=== PATIENT | female | born 1975 | race Caucasian/White ===

== ENCOUNTER 2023-10-10 16:46 | Inpatient (IN) | payer OTHER, SELFPAY ==
[2023-10-10 16:46] VITALS: BP 162/114; PULSE 115; RESP 17; TEMP 35.5; O2SAT 100; BMI 26.2
[2023-10-10 16:48] VITALS: BP 162/114; PULSE 115; RESP 17; TEMP 35.5; O2SAT 100
--- NOTE | 2023-10-10 16:53 | EDS_ITS ---
HPI History of Present Illness Chief Complaint: Cellulitis Informant: patient Onset/Context/Timing Onset: Weeks (1) Context: Gradual Onset Timing: Continuous Quality - All: sharp Location: Right elbow, proximal forearm, and distal upper arm Associated Symptoms Associated Symptoms ED: fever and headache Narrative Narrative: Patient presents with redness and swelling to her right elbow area that has been getting worse over the last week. Patient states she has had some drainage from the posterior aspect of her right elbow that has been intermittent. Patient describes her pain as sharp patient states nothing makes it better nothing makes it worse. Patient denies any paresthesias or weakness. Patient states she started taking doxycycline yesterday and has taken 3 doses of that. Patient admits to some subjective fevers. PFSH PFSH Medical History no medical history no medical history Allergy/AdvReac Type Severity Reaction Status Date / Time Penicillins Allergy Severe Angioedema Verified 10/10/23 16:48 Family History no significant family his Surgical History (Updated 10/10/23 @ 17:[address] Filiberto Moscoso DO) Hx of tubal ligation Social History Smoking Status: Former smoker ROS ROS ED Constitutional Constitutional ED: Reports fever(s) and subjective; Denies chills Eyes Eyes: Denies blurry vision or change in vision ENT ENT ED: Denies rhinorrhea or sore throat Cardiovascular Cardiovascular: Denies chest pain or palpitations Respiratory/Chest Respiratory/Chest: Denies cough or dyspnea Gastrointestinal Gastrointestinal: Denies nausea or vomiting Genitourinary Genitourinary ED: Denies dysuria or hematuria Musculoskeletal Musculoskeletal: Denies back pain or neck pain Integumentary Denies abscess or rash Neurologic Neurologic: Reports headache(s); Denies weakness Allergic/Immunologic Allergic/Immunologic ED: Denies mouth swelling or urticaria EXAM Physical Exam Const Vital Signs: 10/10/23 16:46 10/10/23 16:48 10/10/23 18:18 Temperature 96 F L 96 F L 96.9 F L Temperature Source Temporal Temporal Temporal Pulse Rate 115 H 115 H 94 Respiratory Rate 17 17 18 Blood Pressure 162/114 H 162/114 H 155/92 H Blood Pressure Mean 130 130 113 Pulse Ox 100 100 95 Oxygen Delivery Method Room Air Room Air Room Air Positive well nourished, well developed, alert and oriented x3 General Appearance ED: active, cooperative, well developed and NAD Orientation / Consciousness: awake HEENT Reports normocephalic and moist mucous membranes Neck full ROM and no JVD Extremity Extremity Narrative: There is tenderness, warmth, and erythema over the posterior aspect of the right elbow. There is some mild fluctuance over the olecranon bursa. There is no active discharge or drainage noted. Range of motion of the right elbow is somewhat limited in all motions secondary to pain. Strength is 5/5 in the radial, median, and ulnar areas. Sensation was intact to light touch in the radial, median, and ulnar areas. Radial pulses are equal bilaterally. Neuro oriented x3, CN's II-XII intact bilaterally, moves all extremities, no focal motor deficits and no sensory deficits noted Emeli Coma Scale: document GCS findings Spontaneous Obeys Commands Oriented 15 Sensorium / Orientation: awake and alert Motor Exam: strength 5/5 throughout Psych mental status grossly normal, cooperative and speech normal MDM MDM MDM Narrative Medical decision making narrative: Differential diagnosis includes cellulitis, olecranon bursitis, and sepsis. CBC will be obtained to assess for leukocytosis and anemia. Basic metabolic profile will be obtained to assess for electrolyte abnormality and renal function. Serum lactate will be obtained to assess for sepsis. Blood cultures will be obtained to assess for sepsis. Lab Data Attestation: I reviewed the patient's lab results. Lab results narrative: CBC was reviewed and was within normal limits. PT with INR and PTT were reviewed and were within normal limits. Basic metabolic profile was reviewed and was within normal limits. Serum lactate was reviewed and was normal at 1.1. Labs: Laboratory Results - last 24 hr 10/10/23 17:30 WBC 9.5 RBC 5.20 Hgb 14.8 Hct 45.5 MCV 87.5 MCH 28.5 MCHC 32.5 RDW Std Deviation 40.8 RDW Coeff of Leobardo 12.8 Plt Count 327 MPV 9.7 Immature Gran % (Auto) 0.800 Neut % (Auto) 79.2 H Lymph % (Auto) 10.0 L [place] % (Auto) 9.6 Eos % (Auto) 0.1 Baso % (Auto) 0.3 Absolute Neuts (auto) 7.5 Absolute Lymphs (auto) 0.95 Nucleated RBC % 0 PT 13.8 INR 1.1 APTT 27.3 Sodium 136 Potassium 3.7 Chloride 104 Carbon Dioxide 24.0 Anion Gap 8 BUN 14 Creatinine 0.84 Estim Creat Clear Calc 57.55 Est GFR (MDRD) Af Amer 92 Est GFR (MDRD) Non-Af 76 BUN/Creatinine Ratio 16.7 Glucose 114 H Lactic Acid 1.1 Calcium 9.4 Management Discussion w/another healthcare provider: Hospitalist (Dr. Forrest) and [employer] (Dr. Hernandez) Treatment and Re-Evaluation :: Patient was given IV fluids. Patient was given a dose of vancomycin and Levaquin. Patient was advised of her findings. Case was discussed with the hospitalist. She will admit the patient to her service. Patient understood and was agreeable with the plan. All questions were answered. Case was also discussed with Dr. Hernandez. He will evaluate the patient tomorrow in the hospital. He recommended obtaining x-rays. These were ordered. Patient and spouse understood and were agreeable with the plan. All questions were answered. Discharge Plan Triage Chief Complaint: Cellulitis ED Provider: Filiberto Moscoso Dx/Rx/DC Orders Clinical Impression: Cellulitis of left elbow, Olecranon bursitis of left elbow Primary Care Provider: Care Physician,No Primary Referrals: Rox Ross DO [Med Staff - [employer] Cutting Machine Operator] - Print Language: Greenlandic Disposition Disposition: Acute Care [facility]
[2023-10-10] MEDS: 0.9% Normal Saline (1000mL) 1,000 ML 1000 ML IV (17:36)
[2023-10-10 17:45] LABS: Absolute Lymphocyte Count 0.95 X10^3/uL (0.83-4.51); Absolute Neutrophil Count 7.5 X10^3/uL (2.0-7.7); Basophil# 0.03 X10^3/uL; Basophil% 0.3 % (0-1); Eosinophil# 0.01 X10^3/uL; Eosinophils% 0.1 % (0-5); Hematocrit 45.5 % (37-47); Hemoglobin 14.8 g/dL (12.0-15.0); Lymphocyte # 0.95 X10^3/ul (0.83-4.51); Mean Corp Hgb Conc 32.5 g/dL (32-36); Mean Corpuscular Hgb 28.5 pg (27.0-32.0); Mean Corpuscular Volume 87.5 fL (81-99); Mean Platelet Vol. 9.7 fl (6.2-12.0); Monocyte# 0.91 X10^3/uL; Monocyte% 9.6 % (0-10); NRBC Flagged by Analyzer 0 % (0-5); Neutrophil # 7.52 X10^3/uL (2.7-7.7); Neutrophil % 79.2 % (47-70); Platelet Count 327 K/mm3 (150-450); RBC Distribution Width CV 12.8 % (11.6-14.6); RBC Distribution Width SD 40.8 fl (35.1-43.9); White Blood Count 9.5 K/mm3 (4.4-11.0)
[2023-10-10 17:55] LABS: International Normalized Ratio 1.1; Partial Thromboplast Time 27.3 Seconds (24.1-36.2); Prothrombin Time (Protime)PT. 13.8 SECONDS (11.7-14.9)
[2023-10-10 17:59] LABS: Anion Gap 8 (5-15); BUN 14 mg/dL (7-18); BUN/Creat Ratio 16.7 RATIO (10-20); Calcium,Total 9.4 mg/dL (8.5-10.1); Chloride 104 mmol/L (98-107); Creatinine, Serum 0.84 mg/dL (0.55-1.02); EST Glomerular Filtration Rate 76 mL/min (>60); Est Glom Filt Rate - Afr Amer 92 mL/min (>60); Estimated Creatinine Clearance 57.55 ml/min; Glucose 114 mg/dL (74-106); Potassium 3.7 mmol/L (3.5-5.1); Sodium Level 136 mmol/L (136-145)
[2023-10-10 18:11] LABS: Lactic Acid 1.1 mmol/L (0.4-1.9)
[2023-10-10 18:18] VITALS: BP 155/92; PULSE 94; RESP 18; TEMP 36.1; O2SAT 95
--- NOTE | 2023-10-10 18:21 | HP.PCM_ITS ---
HPI - General General Date of Admission: 10/10/23 Date of Service: 10/10/23 Chief Complaint: redness of RUE HPI Narrative MELY NOLAND, is a 48 F with a PMh as outlined who was admitted via the ED on 10/10/2023 with a complaint of fever, headache and redness of her right elbow, proximal forearm and distal upperrarm. Her symptoms had been going on for at least a week and gradually worsening. She works at [employer] and saw a PA today who started her on p.o. doxycycline. She says she took the medication for 3 days but his symptoms worsened and the redness extended beyond the boundary outlined by the PA. 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 She denied any associated fever, chills, difficulty with moving the RUE or any other symptoms. REview of systems was otherwise negative. Vitals were BP of 155/92, [place] of 94, RR of 18a nd temp of 96.9F. She was saturating at 95% on room air. CBC showed hb of 14.8, wbc of 9.5 adn platelets of 327. CBC was unremarkable, and INR was 1.1. She was started on IV vancomycin and levofloxacin and is being admitted to be managed for cellulitis of hte RUE. [facility] Medical History no medical history Allergy/AdvReac Type Severity Reaction Status Date / Time Penicillins Allergy Severe Angioedema Verified 10/10/23 16:48 Family History no significant family his Surgical History (Updated 10/10/23 @ 17:[address] Filiberto Moscoso DO) Hx of tubal ligation Social History Smoking Status: Former smoker ROS Constitutional Constitutional: Denies anorexia, chills, fatigue, fever(s), malaise or weakness Eyes Eyes: Denies change in vision ENT HEENT: Denies dysphagia or sore throat Cardiovascular Cardiovascular: Denies chest pain, claudication, edema, palpitations or paroxysmal nocturnal dyspnea Respiratory/Chest Respiratory/Chest: Denies cough, shortness of breath at rest or shortness of breath with exertion Gastrointestinal Gastrointestinal: Denies abdominal pain, diarrhea, dyspepsia, nausea or vomiting Genitourinary Genitourinary: Denies dysuria Musculoskeletal Musculoskeletal: Reports joint pain and joint swelling; Denies back pain Integumentary Integumentary: Denies dry skin, jaundice, lesions, pruritus, rash or wounds Neurologic Neurologic: Denies confusion, dizziness, focal weakness, headache(s), lack of coordination, numbness or seizures Psychiatric Psychiatric: Denies anxiety or depression Vital Signs Vital Signs Vital Signs: 10/10/23 16:46 10/10/23 16:48 10/10/23 18:18 Temperature 96 F L 96 F L 96.9 F L Temperature Source Temporal Temporal Temporal Pulse Rate 115 H 115 H 94 Respiratory Rate 17 17 18 Blood Pressure 162/114 H 162/114 H 155/92 H Blood Pressure Mean 130 130 113 Pulse Ox 100 100 95 Oxygen Delivery Method Room Air Room Air Room Air Weight Weight: 117 lb 1.047 oz Body Mass Index (BMI) 26.2 Physical Exam Const alert, oriented x3 and no apparent distress General Appearance: cooperative and well developed HEENT normocephalic, head/scalp atraumatic, moist oral mucous membranes and oropharynx normal Eyes PERRL and EOMs intact bilaterally Neck no lymphadenopathy and supple Lymph Lymphatic: no lymphadenopathy noted and no lymphedema noted Resp normal respiratory effort, normal air movement and clear to auscultation bilaterally Cardio regular rate, regular rhythm, S1 normal heart sound, S2 normal heart sound and no murmurs GI normal to inspection, nondistended, normoactive bowel sounds, soft to palpation, non-tender and non-distended Extremity Extremity Narrative: RUE swollen at elbow, erythematous with differential warmth. fluctuant swelling over olecranon bursa, with differential warmth. Tender to touch. Erythema extends over elbow to upper forearm and lower arm. Area outlined with a body marker. Skin Skin Narrative: as under extremities Neuro CN's II-XII intact bilaterally, no focal motor deficits, no sensory deficits noted and deep tendon reflexes 2+ bilaterally Motor Exam: strength 5/5 throughout and general weakness Psych thought process normal and cooperative Appearance: appropriate Results Lab / Micro Data 10/10/23 17:30 10/10/23 17:30 Labs: Laboratory Results - last 24 hr 10/10/23 17:30: WBC 9.5, RBC 5.20, Hgb 14.8, Hct 45.5, MCV 87.5, MCH 28.5, MCHC 32.5, RDW Std Deviation 40.8, RDW Coeff of Leobardo 12.8, Plt Count 327, MPV 9.7, Immature Gran % (Auto) 0.800, Neut % (Auto) 79.2 H, Lymph % (Auto) 10.0 L, [place] % (Auto) 9.6, Eos % (Auto) 0.1, Baso % (Auto) 0.3, Absolute Neuts (auto) 7.5, Absolute Lymphs (auto) 0.95, Nucleated RBC % 0, PT 13.8, INR 1.1, APTT 27.3, Sodium 136, Potassium 3.7, Chloride 104, Carbon Dioxide 24.0, Anion Gap 8, BUN 14, Creatinine 0.84, Estim Creat Clear Calc 57.55, Est GFR (MDRD) Af Amer 92, Est GFR (MDRD) Non-Af 76, BUN/Creatinine Ratio 16.7, Glucose 114 H, Lactic Acid 1.1, Calcium 9.4 Assessment & Plan Assessment/Plan (1) Cellulitis: PLAN: Plan #Cellulitis of the RUE in charley setting of olecranon bursitis * Admit to MedSurg * WBC is not elevated. Will get an x-ray of the upper extremity to rule out any abscess formation. * Start on IV vancomycin Get blood cultures. * Consult orthopedic surgery as she says she works at [employer] and Dr. Hernandez said he was going to open up her elbow to wash it out. # Elevated blood pressure: BP is 155/92. Not known to be hypertensive. IV hydralazine prn. TO start BP meds if pain remains elevated. DVT prophylaxis: lovenox Charges/Coding Visit Charges Inpatient E&M: 86536 Init Hosp L3
[2023-10-10] MEDS: Vancomycin HCl 750 MG in 0.9% Normal Saline (250mL Bag) 250 ML 250 MG IV (18:46)
[2023-10-10 18:48] VITALS: BP 154/90; PULSE 90; RESP 19; TEMP 36.1; O2SAT 98
--- NOTE | 2023-10-10 18:56 | RAD_ITS ---
STUDY: X-RAY - RIGHT ELBOW REASON FOR EXAM: Female, 48 years old. Injury/Pain TECHNIQUE: 3 view(s) of the elbow. COMPARISON: None. FINDINGS: Normal visualized humerus, radius and ulna. Normal radiocapitellar and ulnotrochlear articulations. Post olecranon soft tissue swelling is noted. RAD/Elbow min 3 Views IMPRESSION: Post olecranon soft tissue swelling. No acute fracture or dislocation Electronically Signed: Kodi Jernigan MD at 19:28 EDT ,
[2023-10-10 19:00] VITALS: BP 158/95; PULSE 90; RESP 17; TEMP 36.2; O2SAT 97
[2023-10-10] MEDS: levoFLOXacin IV 750 MG/150 ML BAG 100 MG IV (19:34)
[2023-10-10 20:01] VITALS: BMI 26.8
[2023-10-10 20:20] VITALS: BP 160/94; PULSE 105; RESP 16; TEMP 36.1; O2SAT 100
[2023-10-10] MEDS: Vancomycin IV 500 MG/100 ML BAG 100 MG IV (21:30)
[2023-10-10] MEDS: 0.9% Normal Saline (1000mL) 1,000 ML 125 ML IV (21:30)
[2023-10-10] MEDS: Acetaminophen 325 MG Tablet 650 MG PO (21:39)
--- NOTE | 2023-10-10 22:27 | PCM.RX.CS ---
Consult Antibiotic Management Pharmacy has been consulted to manage selected antibiotic: Vancomycin Type of Intervention Type of Consult: New start Suspected Infection Suspected Infection: Skin/Soft tissue Labs Labs: Sodium 136 mmol/L (136-145) 10/10/23 17:30 Potassium 3.7 mmol/L (3.5-5.1) 10/10/23 17:30 Chloride 104 mmol/L (98-107) 10/10/23 17:30 Carbon Dioxide 24.0 mmol/L (21.0-32.0) 10/10/23 17:30 Anion Gap 8 (5-15) 10/10/23 17:30 BUN 14 mg/dL (7-18) 10/10/23 17:30 Creatinine 0.84 mg/dL (0.55-1.02) 10/10/23 17:30 Est GFR (MDRD) Af Amer 92 mL/min (>60) 10/10/23 17:30 Est GFR (MDRD) Non-Af 76 mL/min (>60) 10/10/23 17:30 BUN/Creatinine Ratio 16.7 RATIO (10-20) 10/10/23 17:30 Glucose 114 mg/dL (74-106) H 10/10/23 17:30 Dosing Weight Weight used for dosin.2 kg Estimated Creatinine Clearance Estimated Creatinine Clearance: 58 Goal Trough Goal Trough: 15-20 mcg/mL Pharmacy Plan for Drug Dosing Pharmacy Plan for Drug Dosing: Pharmacy Service will continue to monitor and adjust dosing as required. Follow-Up Labs Follow-Up Labs: Trough: Vancomycin Date/Time Labs Ordered Labs to be done on [date and time ordered]: 10/12/23 @0900
[2023-10-11] VITALS (12 sets, daily range): BP systolic 129–155; BP diastolic 75–114; PULSE 87–102; RESP 16–18; TEMP 36.6–37.4; O2SAT 93–100; BMI 26.8
[2023-10-11 04:06] LABS: Bacteria 0 SEEN /hpf (None Seen); Mucous, Urine 0 SEEN /hpf (<or=2+); White Blood Cells 0 SEEN /hpf (0-5)
[2023-10-11 04:11] LABS: Color, Urine Yellow (Yellow); Glucose, Dipstick Normal (Normal); Ketone-Dipstick 15 mg/dl (Negative); Leukocyte Esterase-Dipstick Negative /ul (Negative); Nitrite-Dipstick Negative (Negative); Occult Blood-Urine 250 /ul (Negative); Protein-Dipstick 30 mg/dl (Negative); Urine Bilirubin Dipstick Negative (Negative); Urine Clarity Clear (Clear); Urine Urobilinogen Normal (Normal); Urine pH 6.5 (5.0 - 8.0)
[2023-10-11 04:29] LABS: Red Blood Cells-Urine 10-25 SEEN /hpf (0-5); Squamous Epithelial Cells - UA 5-10 SEEN /hpf (5-10)
[2023-10-11] MEDS: 0.9% Normal Saline (1000mL) 1,000 ML 125 ML IV (05:37)
[2023-10-11 07:24] LABS: Absolute Lymphocyte Count 0.88 X10^3/uL (0.83-4.51); Absolute Neutrophil Count 6.9 X10^3/uL (2.0-7.7); Basophil# 0.04 X10^3/uL; Basophil% 0.4 % (0-1); Eosinophil# 0.01 X10^3/uL; Eosinophils% 0.1 % (0-5); Hematocrit 39.7 % (37-47); Hemoglobin 12.5 g/dL (12.0-15.0); Lymphocyte # 0.88 X10^3/ul (0.83-4.51); Lymphocyte % 9.9 % (19-41); Mean Corp Hgb Conc 31.5 g/dL (32-36); Mean Corpuscular Hgb 28.2 pg (27.0-32.0); Mean Corpuscular Volume 89.4 fL (81-99); Mean Platelet Vol. 9.7 fl (6.2-12.0); Monocyte# 1.03 X10^3/uL; Monocyte% 11.6 % (0-10); NRBC Flagged by Analyzer 0 % (0-5); Neutrophil # 6.88 X10^3/uL (2.7-7.7); Neutrophil % 77.2 % (47-70); Platelet Count 298 K/mm3 (150-450); RBC Distribution Width CV 12.8 % (11.6-14.6); RBC Distribution Width SD 41.9 fl (35.1-43.9); Red Blood Count 4.44 M/mm3 (4.2-5.4); White Blood Count 8.9 K/mm3 (4.4-11.0)
[2023-10-11 08:06] LABS: Anion Gap 7 (5-15); BUN 10 mg/dL (7-18); BUN/Creat Ratio 14.5 RATIO (10-20); Calcium,Total 8.2 mg/dL (8.5-10.1); Chloride 108 mmol/L (98-107); Creatinine, Serum 0.69 mg/dL (0.55-1.02); EST Glomerular Filtration Rate 96 mL/min (>60); Est Glom Filt Rate - Afr Amer 116 mL/min (>60); Estimated Creatinine Clearance 70.06 ml/min; Glucose 111 mg/dL (74-106); Potassium 3.5 mmol/L (3.5-5.1); Sodium Level 136 mmol/L (136-145)
--- NOTE | 2023-10-11 08:28 | WOUNDNOTE ---
Was asked to see patient for cellulitis of the right arm. patient states she has had issues with bursitis in the past. the redness to the arm had extended past the skin markings. there is some fluctuance noted at the elbow. arm is warm to touch. no drainage noted at this time. awaiting Spittle consult.
--- NOTE | 2023-10-11 08:44 | PCM.RX.CS ---
Consult Antibiotic Management Pharmacy has been consulted to manage selected antibiotic: Vancomycin Type of Intervention Type of Consult: Follow-up Suspected Infection Suspected Infection: Skin/Soft tissue Labs Labs: Sodium 136 mmol/L (136-145) 10/11/23 07:05 Potassium 3.5 mmol/L (3.5-5.1) 10/11/23 07:05 Chloride 108 mmol/L (98-107) H 10/11/23 07:05 Carbon Dioxide 21.0 mmol/L (21.0-32.0) 10/11/23 07:05 Anion Gap 7 (5-15) 10/11/23 07:05 BUN 10 mg/dL (7-18) 10/11/23 07:05 Creatinine 0.69 mg/dL (0.55-1.02) 10/11/23 07:05 Est GFR (MDRD) Af Amer 116 mL/min (>60) 10/11/23 07:05 Est GFR (MDRD) Non-Af 96 mL/min (>60) 10/11/23 07:05 BUN/Creatinine Ratio 14.5 RATIO (10-20) 10/11/23 07:05 Glucose 111 mg/dL (74-106) H 10/11/23 07:05 Goal Trough Goal Trough: 15-20 mcg/mL Pharmacy Plan for Drug Dosing Pharmacy Plan for Drug Dosing: DAILY ASSESSMENT Current Vancomycin Dose: 500mg Q12H Number of Doses Received: 1250mg x1 Current Renal Function: sCr 0.69 Renal Function Trend: improved Lab/Micro: pending Any Change in Vanc Plan: Adjust dosing regimen to 750mg Q12H Pending Level: Vancomycin trough @ 0900 10/12/23 Pharmacy Service will continue to monitor and adjust dosing as required. Follow-Up Labs Follow-Up Labs: Trough: Vancomycin (09:00 10/12/23)
[2023-10-11] MEDS: Vancomycin HCl 750 MG in 0.9% Normal Saline (250mL Bag) 250 ML 250 MG IV ×2 (09:31→21:04)
--- NOTE | 2023-10-11 10:26 | CONS.ORTHO ---
HPI Consult Data Date of Consult: 10/11/23 HPI Narrative Reason for Consultation: R septic olecranon bursitis/cellulitis HPI Narrative: MARCIA NOLAND, is a 48 F who presented to [facility] emergency department 10/10/2023 with fever, headache, malaise, redness and swelling of the right elbow with worsening cellulitic rash over the past 3 days. She was seen at [facility] and given oral doxycycline due to a penicillin allergy. Her symptoms worsened and cellulitic rash spread beyond skin markings. She was advised to go to the emergency department. She was evaluated by emergency room physician. She was started on IV vancomycin and Levaquin. She was admitted under the service to hospitalist due to failure of outpatient therapy of the cellulitis. I saw patient in consultation this morning. At time my examination, patient still reports some chills, fatigue as well as pain and swelling in the right elbow. [facility] Medical History (Updated 10/11/23 @ 10:[address] Franco Hernandez DO) Bleeding tendency Irritable bowel History of stress test Hearing loss, left Hearing loss, right Migraines Medical History no medical history Allergy/AdvReac Type Severity Reaction Status Date / Time Penicillins Allergy Severe Angioedema Verified 10/10/23 16:48 Family History no significant family his Surgical History (Updated 10/10/23 @ 17:[address] Filiberto Moscoso DO) Hx of tubal ligation Social History Smoking Status: Former smoker ROS ROS Narrative 12 point review systems obtained, negative unless otherwise noted HPI Vital Signs Vital Signs Vital Signs: 10/10/23 16:46 10/10/23 16:48 10/10/23 18:18 Temperature 96 F L 96 F L 96.9 F L Temperature Source Temporal Temporal Temporal Pulse Rate 115 H 115 H 94 Pulse Strength Respiratory Rate 17 17 18 Respiratory Effort Respiratory Depth Respiratory Pattern Blood Pressure 162/114 H 162/114 H 155/92 H Blood Pressure Mean 130 130 113 Blood Pressure Source Blood Pressure Position Blood Pressure Location Pulse Ox 100 100 95 Oxygen Delivery Method Room Air Room Air Room Air 10/10/23 18:48 10/10/23 19:00 10/10/23 20:20 Temperature 96.9 F L 97.1 F L 97 F L Temperature Source Temporal Temporal Pulse Rate 90 90 105 H Pulse Strength Respiratory Rate 19 H 17 16 Respiratory Effort Respiratory Depth Respiratory Pattern Blood Pressure 154/90 H 158/95 H 160/94 H Blood Pressure Mean 111 116 116 Blood Pressure Source Monitor Blood Pressure Position Sitting Blood Pressure Location Left Arm Pulse Ox 98 97 100 Oxygen Delivery Method Room Air Room Air 10/10/23 20:52 10/11/23 02:56 10/11/23 08:56 Temperature 99.3 F H 97.8 F Temperature Source Temporal Oral Pulse Rate 98 96 Pulse Strength Respiratory Rate 16 18 Respiratory Effort Normal Non-Labored Respiratory Depth Normal Respiratory Pattern Normal Blood Pressure 140/81 H 155/88 H Blood Pressure Mean 100 110 Blood Pressure Source Monitor Monitor Blood Pressure Position Semi-Fowlers Semi-Fowlers Blood Pressure Location Left Arm Left Arm Pulse Ox 100 100 Oxygen Delivery Method Room Air Room Air Room Air 10/11/23 09:00 10/11/23 09:29 Temperature Temperature Source Pulse Rate Pulse Strength Normal (2+) Respiratory Rate Respiratory Effort Normal Non-Labored Respiratory Depth Normal Respiratory Pattern Normal Blood Pressure Blood Pressure Mean Blood Pressure Source Blood Pressure Position Blood Pressure Location Pulse Ox Oxygen Delivery Method Room Air Weight Weight: 119 lb 9 oz Body Mass Index (BMI) 26.8 Physical Exam Narrative General -A&Ox3, NAD, appears stated age. Vital signs stable, afebrile. Respiratory -normal work of breathing, no intercostal retractions. CV -pulses regular, brisk capillary refill ?4 limbs. Abdomen-soft, nontender, nondistended. No guarding, rigidity, rebound tenderness. Musculoskeletal/neurologic -full range of motion nontender throughout bilateral lower extremities, left upper extremity with full sensation and strength in all dermatomes and myotomes. No midline cervical tenderness. Right upper extremity -cellulitic rash centered over the right olecranon with trace fluctuance in the olecranon bursa. There is mild induration noted in the distal posterior brachium. There is tenderness to palpation along the medial epicondyles felt to be lymphadenopathy. There is no axillary lymphadenopathy. Cardinal motions of right hand are intact. No short arc range of motion pain of the elbow. Brisk capillary refill in the fingertips. Radial pulse 2+. Sensation intact to light touch throughout the right upper extremity. No active drainage or wounds. Hypertrophic skin is noted at the olecranon consistent with chronic bursitis. Lab / Micro Data 10/11/23 07:05 10/11/23 07:05 Labs: Laboratory Results - last 24 hr 10/10/23 17:30: WBC 9.5, RBC 5.20, Hgb 14.8, Hct 45.5, MCV 87.5, MCH 28.5, MCHC 32.5, RDW Std Deviation 40.8, RDW Coeff of Leobardo 12.8, Plt Count 327, MPV 9.7, Immature Gran % (Auto) 0.800, Neut % (Auto) 79.2 H, Lymph % (Auto) 10.0 L, [place] % (Auto) 9.6, Eos % (Auto) 0.1, Baso % (Auto) 0.3, Absolute Neuts (auto) 7.5, Absolute Lymphs (auto) 0.95, Nucleated RBC % 0, PT 13.8, INR 1.1, APTT 27.3, Sodium 136, Potassium 3.7, Chloride 104, Carbon Dioxide 24.0, Anion Gap 8, BUN 14, Creatinine 0.84, Estim Creat Clear Calc 57.55, Est GFR (MDRD) Af Amer 92, Est GFR (MDRD) Non-Af 76, BUN/Creatinine Ratio 16.7, Glucose 114 H, Lactic Acid 1.1, Calcium 9.4 10/11/23 03:50: Urine Color Yellow, Urine Clarity Clear, Urine pH 6.5, Ur Specific [place] 1.010, Urine Protein 30 H, Urine Glucose (UA) Normal, Urine Ketones 15 H, Urine Occult Blood 250 H, Urine Nitrite Negative, Urine Bilirubin Negative, Urine Urobilinogen Normal, Ur Leukocyte Esterase Negative, Urine RBC 10-25 SEEN, Urine WBC 0 SEEN, Ur Squamous Epith Cells 5-10 SEEN, Urine Bacteria 0 SEEN, Urine Mucus 0 SEEN 10/11/23 07:05: WBC 8.9, RBC 4.44, Hgb 12.5, Hct 39.7, MCV 89.4, MCH 28.2, MCHC 31.5 L, RDW Std Deviation 41.9, RDW Coeff of Leobardo 12.8, Plt Count 298, MPV 9.7, Immature Gran % (Auto) 0.800, Neut % (Auto) 77.2 H, Lymph % (Auto) 9.9 L, [place] % (Auto) 11.6 H, Eos % (Auto) 0.1, Baso % (Auto) 0.4, Absolute Neuts (auto) 6.9, Absolute Lymphs (auto) 0.88, Nucleated RBC % 0, Sodium 136, Potassium 3.5, Chloride 108 H, Carbon Dioxide 21.0, Anion Gap 7, BUN 10, Creatinine 0.69, Estim Creat Clear Calc 70.06, Est GFR (MDRD) Af Amer 116, Est GFR (MDRD) Non-Af 96, BUN/Creatinine Ratio 14.5, Glucose 111 H, Calcium 8.2 L Imaging Radiology Impression Elbow X-Ray 10/10/23 18:56 IMPRESSION: Post olecranon soft tissue swelling. No acute fracture or dislocation Electronically Signed: Kodi Jernigan MD at 19:28 EDT Reading Location ID and State: [facility] / [place] Tel , Service support , Assessment & Plan Assessment/Plan (1) Septic olecranon bursitis of right elbow: PLAN: Plan Patient seen and examined. With lackluster early relief from IV antibiotics and failure of outpatient therapy as well as palpable fluctuance within the olecranon bursa, I recommended surgical intervention in the form of right olecranon bursectomy. We will plan to obtain cultures for more accurate antibiotic targeting. N.p.o., maintenance IV fluids. Plan to proceed with surgery today. I reviewed the risks, benefits, alternatives to procedure with Marcia at length and she agreed to proceed. We discussed possible drain and splint. All questions answered patient satisfaction. Continue antibiotics per primary. I suspect earliest discharge tomorrow.
--- NOTE | 2023-10-11 11:08 | EKG12_ITS ---
Test Reason : PRE OP Blood Pressure : / mmHG Vent. Rate : 098 BPM Atrial Rate : 098 BPM P-R Int : 136 ms QRS Dur : 074 ms QT Int : 344 ms P-R-T Axes : 044 040 024 degrees QTc Int : 439 ms Normal sinus rhythm Normal ECG No previous ECGs available Confirmed by Ceferino Moore ([id number]), subeditor RALPH VELAZQUEZ ([id number]) on 10/12/2023 10:31:41 AM Referred By: Zoey Forrest Confirmed By:Ceferino Moore
--- NOTE | 2023-10-11 13:07 | CASEMGMT ---
CARLOS MORELAND Assessment Face to Face with patient for initial transition planning/care coordination assessment. CARLOS MORELAND introduced self and role at [facility], pt voices understanding. Pt is A&Ox4 and is resting comfortably in bed and is calm. Care providers, pharmacy, and demographics verified. Admitting dx: Cellulitis of RUE PCP: No PCP, pt denies list Specialists: Mary. 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 Denies all other DME uses or needs HHC/SNF: Denies history or needs Pt?s goal: Home and f/u with [facility] Plan: 6-Click is 24. Pt is planned for surgery today and then will most likely D/C Sunday. 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 CM to follow for safe DC from [facility]. Jerry Mcmahon RN, CM
--- NOTE | 2023-10-11 13:19 | NURSING ---
Pt sent to OR
[2023-10-11] MEDS: Lactated Ringers 1,000 ML 15 ML IV (13:58)
--- NOTE | 2023-10-11 14:34 | PCM.PN.HOSP ---
Reason for Visit Reason for Visit: Right arm swelling and erythema Subjective Subjective Patient is a 48-year-old white female who presents emergency department at [facility] on 10/10/2023 with right elbow swelling and right upper extremity swelling and erythema. The patient reported that it started last week and had been progressively getting worse. She states intermittently she gets an area that drains and it occurred last week. Physician congressional assistant told her to put a bandage over it and then antibiotics had been started orally with doxycycline. Unfortunately, her swelling and erythema got worse and she is developed a significant boggy swelling at the right elbow bursa. She stated the pain was sharp and that nothing makes it better or worse. She denies any paresthesias changes in pulses or sensation in her hand. She denies any significant weakness in the arm either. She had a total of 3 doses of doxycycline prior to admission. She has had some fevers and chills at home. Also admits to some intermittent headache. She takes no medications at baseline and works in [place] [employer]. The case was discussed with Dr. Hernandez and he agreed to evaluate the patient's for probable I&D. She was started on vancomycin and Levaquin at admission. Blood cultures were ordered by the emergency department prior to the initiation of antibiotics. Today she states that swelling is about the same. The area was outlined and no extension of erythema has been noted to be present. She states she is feeling a little bit better and impresses upon us but she is anxious to get home soon as possible. Objective Data Objective Data Vital Signs: Vital Signs Temp Pulse Resp BP Pulse Ox O2 Del Method 98.7 F 98 18 146/91 H 100 Room Air 10/11/23 12:24 10/11/23 12:24 10/11/23 12:24 10/11/23 12:24 10/11/23 12:24 10/11/23 12:24 Oxygen Delivery Method Room Air Weight: 54.233 kg Body Mass Index (BMI) 26.8 Intake & Output: Intake and Output for Last 24 Hours 10/09/23 10/10/23 10/11/23 23:59 23:59 23:59 Intake Total 1445.83 / 1645.83 2140 / 2140 Output Total 200 / 200 Balance 1445.83 / 1645.83 1940 / 1940 Lab / Micro Data 10/11/23 07:05 10/11/23 07:05 Labs: Laboratory Results - last 24 hr 10/10/23 17:30: WBC 9.5, RBC 5.20, Hgb 14.8, Hct 45.5, MCV 87.5, MCH 28.5, MCHC 32.5, RDW Std Deviation 40.8, RDW Coeff of Leobardo 12.8, Plt Count 327, MPV 9.7, Immature Gran % (Auto) 0.800, Neut % (Auto) 79.2 H, Lymph % (Auto) 10.0 L, [place] % (Auto) 9.6, Eos % (Auto) 0.1, Baso % (Auto) 0.3, Absolute Neuts (auto) 7.5, Absolute Lymphs (auto) 0.95, Nucleated RBC % 0, PT 13.8, INR 1.1, APTT 27.3, Sodium 136, Potassium 3.7, Chloride 104, Carbon Dioxide 24.0, Anion Gap 8, BUN 14, Creatinine 0.84, Estim Creat Clear Calc 57.55, Est GFR (MDRD) Af Amer 92, Est GFR (MDRD) Non-Af 76, BUN/Creatinine Ratio 16.7, Glucose 114 H, Lactic Acid 1.1, Calcium 9.4 10/11/23 03:50: Urine Color Yellow, Urine Clarity Clear, Urine pH 6.5, Ur Specific [place] 1.010, Urine Protein 30 H, Urine Glucose (UA) Normal, Urine Ketones 15 H, Urine Occult Blood 250 H, Urine Nitrite Negative, Urine Bilirubin Negative, Urine Urobilinogen Normal, Ur Leukocyte Esterase Negative, Urine RBC 10-25 SEEN, Urine WBC 0 SEEN, Ur Squamous Epith Cells 5-10 SEEN, Urine Bacteria 0 SEEN, Urine Mucus 0 SEEN 10/11/23 07:05: WBC 8.9, RBC 4.44, Hgb 12.5, Hct 39.7, MCV 89.4, MCH 28.2, MCHC 31.5 L, RDW Std Deviation 41.9, RDW Coeff of Leobardo 12.8, Plt Count 298, MPV 9.7, Immature Gran % (Auto) 0.800, Neut % (Auto) 77.2 H, Lymph % (Auto) 9.9 L, [place] % (Auto) 11.6 H, Eos % (Auto) 0.1, Baso % (Auto) 0.4, Absolute Neuts (auto) 6.9, Absolute Lymphs (auto) 0.88, Nucleated RBC % 0, Sodium 136, Potassium 3.5, Chloride 108 H, Carbon Dioxide 21.0, Anion Gap 7, BUN 10, Creatinine 0.69, Estim Creat Clear Calc 70.06, Est GFR (MDRD) Af Amer 116, Est GFR (MDRD) Non-Af 96, BUN/Creatinine Ratio 14.5, Glucose 111 H, Calcium 8.2 L Radiography Diagnostic Testing: Radiology Impression Elbow X-Ray 10/10/23 18:56 IMPRESSION: Post olecranon soft tissue swelling. No acute fracture or dislocation Electronically Signed: Kodi Jernigan MD at 19:28 EDT Reading Location ID and State: [facility] / [place] Tel , Service support , Physical Exam Const alert, oriented x3, no apparent distress, average body habitus and well nourished Constitutional Narrative: Middle-aged, white female, sitting up in bed, at bedside, nursing at bedside, patient currently pillars comfortable, does not appear toxic HEENT head/scalp atraumatic and moist oral mucous membranes HEENT Narrative: Mallampati 2, no thrush Head and Scalp: normocephalic Resp normal respiratory effort, no retractions, no use of accessory muscles and clear to auscultation bilaterally Auscultation: Negative for rales, rhonchi or wheezes Cardio regular rate, regular rhythm, S1 normal heart sound, S2 normal heart sound, no murmurs, no rub, no gallops and no clicks GI normal to inspection, nondistended, normoactive bowel sounds, soft to palpation and non-tender Extremity Extremity Narrative: Right Exer extremity erythema from the mid forearm to the mid upper arm with significant erythema at the olecranon bursa, bursa is also very boggy and tender, no cyanosis or clubbing, no abnormalities left upper extremity, no drainage from the elbow, tender to palpation Neuro oriented x3, moves all extremities and no focal motor deficits Speech: speech normal Psych affect normal Psych Narrative: Very pleasant, interacts appropriately Assessment & Plan Assessment/Plan (1) Septic olecranon bursitis of right elbow: (2) Olecranon bursitis of left elbow: (3) Cellulitis of left elbow: (4) Cellulitis: PLAN: Plan Right upper extremity cellulitis/septic olecranon bursitis -Continue Levaquin and vancomycin -Failed outpatient doxycycline x 3 doses -Surgical plan on is for right olecranon bursectomy with intraoperative cultures later today -Patient to remain n.p.o. next-continue IV fluids next-continue pain medication as ordered History of migraines -No current issues Chronic hearing loss -Patient does well with hearing aids IBS -Patient on no chronic medications History of tobacco abuse -Remote -Encourage ongoing cessation DVT prophylaxis -Subcu Lovenox daily CODE STATUS -Full code Charges/Coding Visit Charges Inpatient E&M: 60826 Subs Hosp L2
[2023-10-11] MEDS: Lidocaine 1% /Epi 1:100 (20ml) 20 ML Vial (15:09)
--- NOTE | 2023-10-11 15:44 | OP.PCM_ITS ---
Report of Operation Date of Procedure: 10/11/23
--- NOTE | 2023-10-11 15:44 | PCM.OPRPT ---
Report of Operation Date of Procedure: 10/11/23 Description of Surgical Findings:: Preoperative diagnosis: Right septic olecranon bursitis Postoperative diagnosis: Right septic olecranon bursitis Procedure: Right septic olecranon bursectomy with irrigation and debridement Surgeon: Franco Hernandez DO Tool Filer: Valery Euceda PA-C Anesthesia: General endotracheal Anesthesiologist: Dr. Rogers Complications: None apparent Drains: None Estimated blood loss: 75 cc Urinary output: None IV fluids: Per anesthesia record Specimens: Aerobic and anaerobic cultures of olecranon bursal fluid Surgical implants: None Surgical indications: This is a 48-year-old female who presented to [facility] emergency department 10/10/2023 with fever, headache, malaise, redness and swelling of the right elbow with worsening cellulitic rash over the past 3 days. She was seen at [facility] and given oral doxycycline due to a penicillin allergy. Her symptoms worsened and cellulitic rash spread beyond skin markings. She was advised to go to the emergency department. She was evaluated by emergency room physician. She was started on IV vancomycin and Levaquin. She was admitted under the service to hospitalist due to failure of outpatient therapy of the cellulitis. I saw patient in consultation this morning. At time my examination, patient still reports some chills, fatigue as well as pain and swelling in the right elbow. I recommend surgical intervention in the form of right septic olecranon bursectomy with irrigation and debridement. I reviewed the risks, benefits, alternatives to procedure with patient at length. Informed sent was obtained. Risks of the procedure included but were not limited to bleeding, persistent infection, loss of life or limb, persistent swelling, persistent pain, neurovascular injury, DVT or PE, tendon injury, wound complications, stiffness. Description of procedure: Patient was seen in preoperative holding area. She was identified by name, medical record number, date of . The operative extremity was marked with a surgical marker. We confirmed informed consent with the patient and all questions were answered to her satisfaction. Anesthesia consent was also obtained by the anesthesia team prior to procedure. At time of her procedure, patient was brought to the operative suite and positioned supine on a standard operating table. No IV antibiotics were administered as patient is on scheduled IV Levaquin and vancomycin. General anesthesia was induced and laryngeal mask airway placed. All bony prominences well-padded. Patient was positioned in lateral decubitus position with the right side up. An axillary roll was placed. Fibular head was free on the down leg. All bony prominences were well-padded in the lateral decubitus position. We positioned the patient in the lateral decubitus position utilizing a beanbag. The operative extremity was brought over a radiolucent post. We then prepped and draped the right upper extremity in normal, sterile orthopedic fashion after spending the bed 90 degrees. We performed a timeout with all parties in attendance in agreement with the side, site, operation to be performed. No concerns were voiced elected proceed with surgery. Longitudinal incision was marked overlying the olecranon bursa. Skin and subcutaneous tissue was sharply dissected with a 10 blade scalpel. Chronic hypertrophic skin changes were ellipticized in the central portion of the wound. Immediately deep to the skin level, fluid was encountered after the bursal sac was entered. Fluid was serous without gross purulence. There was significant internal degloving with separation of the dermis from the underlying bursal/fascial level. There is no significant fatty layer. The dermis was especially thinned in the central portion of the wound. Even excising the central skin left lackluster dermal layer. I carried the bursal excision deeper down to the level of the ulnar periosteum and fascia. Triceps fascia was left intact. Wound was then copiously irrigated normal saline solution. I anesthetized the skin flaps and surrounding tissues with 10 cc 1% lidocaine with epinephrine 1: 100,000 to assist with hemostasis. I then utilized a 3-0 Vicryl to reduce space by reapproximating the subcutaneous tissue to both the triceps fascia and the ulnar periosteum via quilting suture technique. Dermis was reapproximated with 3-0 Monocryl suture. Skin was finally reapproximated with interrupted simple 3?0 nylon suture. Sterile compression dressing was then applied after the limb was cleansed. A well-padded posterior elbow fiberglass splint was then applied with the wrist free in 90 degrees of elbow flexion. Patient was then repositioned in the supine position. She was safely extubated in the operative suite and transferred to her gurney and subsequently to PACU in stable condition. Need for skilled kindergarten teacher assistant: Valery Euceda PA-C was critical to the outcome of the case. During the course of the procedure the physician kindergarten teacher assistant played a vital role. Her intimate knowledge of my steps in the procedure aided in safe and expedient completion of the procedure. The PA played a vital role in positioning particularly in obtaining the appropriate positioning. The PA was also vital in the retraction of soft tissues during the exposure and protecting vital structures. She also played a vital role in closure and splint application with my direct supervision. Post Operative Plan: Patient be transferred back to her hospital bed. Follow intraoperative cultures for targeted antibiotic therapy. Strict elevation of the right arm. Okay to perform range of motion as tolerated to the shoulder wrist and hand. Weightbearing: Nonweightbearing operative extremity Antibiotics: Continue scheduled Levaquin and vancomycin, defer to primary regarding antibiotic choice. DVT Prophylaxis: Okay for Lovenox postoperative day #1 from my standpoint, consider aspirin 81 mg twice daily for DVT prophylaxis x 2 weeks upon discharge. Pagan: None Dressing: Maintain splint until follow-up keep in a clean, dry and intact. X-Rays: None Pain Medication: Multimodal with Tylenol, Celebrex, oxycodone Follow-up: 1 week post-operatively with me in the office for wound check
[2023-10-11] MEDS: Celecoxib 200 MG Capsule PO (21:04)
[2023-10-11] MEDS: Acetaminophen 500 MG Tablet 1000 MG PO (21:07)
[2023-10-12 03:00] VITALS: BP 131/80; PULSE 67; RESP 16; TEMP 36.4; O2SAT 99
[2023-10-12] MEDS: Acetaminophen 500 MG Tablet 1000 MG PO (06:26)
[2023-10-12 07:33] LABS: Absolute Lymphocyte Count 1.28 X10^3/uL (0.83-4.51); Absolute Neutrophil Count 5.1 X10^3/uL (2.0-7.7); Basophil# 0.01 X10^3/uL; Basophil% 0.1 % (0-1); Eosinophil# 0.01 X10^3/uL; Eosinophils% 0.1 % (0-5); Hematocrit 37.3 % (37-47); Lymphocyte # 1.28 X10^3/ul (0.83-4.51); Lymphocyte % 17.3 % (19-41); Mean Corp Hgb Conc 32.2 g/dL (32-36); Mean Corpuscular Hgb 28.2 pg (27.0-32.0); Mean Corpuscular Volume 87.8 fL (81-99); Mean Platelet Vol. 9.6 fl (6.2-12.0); Monocyte# 0.97 X10^3/uL; Monocyte% 13.1 % (0-10); NRBC Flagged by Analyzer 0 % (0-5); Neutrophil # 5.06 X10^3/uL (2.7-7.7); Neutrophil % 68.6 % (47-70); Platelet Count 344 K/mm3 (150-450); RBC Distribution Width CV 12.9 % (11.6-14.6); RBC Distribution Width SD 41.3 fl (35.1-43.9); Red Blood Count 4.25 M/mm3 (4.2-5.4); White Blood Count 7.4 K/mm3 (4.4-11.0)
--- NOTE | 2023-10-12 07:57 | PCM.PN.ORT ---
Subjective Subjective Patient seen and examined. She denies any new complaints. Pain controlled current pain regimen. Denies any fevers, chills, nausea vomiting, chest pain or shortness of breath. She states she feels much better compared to yesterday. Objective Data Objective Data Vital Signs: Vital Signs Temp Pulse Resp BP Pulse Ox O2 Del Method 97.6 F L 67 16 131/80 H 99 Room Air 10/12/23 03:00 10/12/23 03:00 10/12/23 03:00 10/12/23 03:00 10/12/23 03:00 10/12/23 03:00 Oxygen Delivery Method Room Air Weight: 119 lb 9 oz Body Mass Index (BMI) 26.8 Intake & Output: Intake and Output for Last 24 Hours 10/10/23 10/11/23 10/12/23 23:59 23:59 23:59 Intake Total 1445.83 / 1645.83 3405 / 3755 1000 / 1000 Output Total 200 / 200 Balance 1445.83 / 1645.83 3205 / 3555 1000 / 1000 Lab / Micro Data 10/12/23 07:11 10/11/23 07:05 Labs: Laboratory Results - last 24 hr 10/11/23 07:05: Sodium 136, Potassium 3.5, Chloride 108 H, Carbon Dioxide 21.0, Anion Gap 7, BUN 10, Creatinine 0.69, Estim Creat Clear Calc 70.06, Est GFR (MDRD) Af Amer 116, Est GFR (MDRD) Non-Af 96, BUN/Creatinine Ratio 14.5, Glucose 111 H, Calcium 8.2 L 10/12/23 07:11: WBC 7.4, RBC 4.25, Hgb 12.0, Hct 37.3, MCV 87.8, MCH 28.2, MCHC 32.2, RDW Std Deviation 41.3, RDW Coeff of Leobardo 12.9, Plt Count 344, MPV 9.6, Immature Gran % (Auto) 0.800, Neut % (Auto) 68.6, Lymph % (Auto) 17.3 L, [place] % (Auto) 13.1 H, Eos % (Auto) 0.1, Baso % (Auto) 0.1, Absolute Neuts (auto) 5.1, Absolute Lymphs (auto) 1.28, Nucleated RBC % 0 Physical Exam Narrative General - A&Ox3, NAD. VSS/AF. Right upper Extremity - SILT right hand M/U/R. Cardinal motions of the right hand are intact. Compartments soft and compressible. BCR in finger tips. Incisional splint/dressing C/D/I. The margins of the cellulitic rash approximately appear to have receded significantly. I did not remove the splint beyond the margins. Assessment & Plan Assessment/Plan (1) Septic olecranon bursitis of right elbow: PLAN: POD# 1 s/p right septic olecranon bursectomy with I&D -Patient doing well this morning. Cultures are pending. She appears to be responding well to I&D as well as the IV antibiotics. I will defer to primary service regarding discharge plan for antibiotics in terms of empiric treatment versus targeted antibiotic therapy with final cultures. - Pain control -Strict elevation right arm, patient appears she is doing well with this. There is minimal edema in the right hand. - Medicine following for medical management - PT/OT -edema control right upper extremity. Range of motion as tolerated shoulder wrist and hand. - DVT PPX -Lovenox, SCDs, early mobilization. - Case management - D/C planning
[2023-10-12 08:04] LABS: Anion Gap 6 (5-15); BUN 13 mg/dL (7-18); BUN/Creat Ratio 20.2 RATIO (10-20); Calcium,Total 9.1 mg/dL (8.5-10.1); Chloride 106 mmol/L (98-107); Creatinine, Serum 0.64 mg/dL (0.55-1.02); EST Glomerular Filtration Rate 103 mL/min (>60); Est Glom Filt Rate - Afr Amer 125 mL/min (>60); Estimated Creatinine Clearance 75.54 ml/min; Glucose 128 mg/dL (74-106); Potassium 3.6 mmol/L (3.5-5.1); Sodium Level 135 mmol/L (136-145)
--- NOTE | 2023-10-12 08:34 | WOUNDNOTE ---
Dressing is to stay in place to the right arm. Dr Hernandez had been in to see patient already this am.
[2023-10-12 09:00] VITALS: BP 148/87; PULSE 72; RESP 18; TEMP 36.6; O2SAT 100
[2023-10-12] MEDS: Celecoxib 200 MG Capsule PO (09:07)
[2023-10-12 09:53] LABS: Vancomycin, Trough Level 7.6 ug/mL (5.0-15.0)
--- NOTE | 2023-10-12 10:13 | PCM.RX.CS ---
Consult Antibiotic Management Pharmacy has been consulted to manage selected antibiotic: Vancomycin Type of Intervention Type of Consult: Follow-up Suspected Infection Suspected Infection: Skin/Soft tissue Labs Labs: Sodium 135 mmol/L (136-145) L 10/12/23 07:11 Potassium 3.6 mmol/L (3.5-5.1) 10/12/23 07:11 Chloride 106 mmol/L (98-107) 10/12/23 07:11 Carbon Dioxide 23.0 mmol/L (21.0-32.0) 10/12/23 07:11 Anion Gap 6 (5-15) 10/12/23 07:11 BUN 13 mg/dL (7-18) 10/12/23 07:11 Creatinine 0.64 mg/dL (0.55-1.02) 10/12/23 07:11 Est GFR (MDRD) Af Amer 125 mL/min (>60) 10/12/23 07:11 Est GFR (MDRD) Non-Af 103 mL/min (>60) 10/12/23 07:11 BUN/Creatinine Ratio 20.2 RATIO (10-20) H 10/12/23 07:11 Glucose 128 mg/dL (74-106) H 10/12/23 07:11 Vancomycin Trough 7.6 ug/mL (5.0-15.0) 10/12/23 09:01 Microbiology Microbiology: Microbiology 10/11/23 14:18 Wound - Elbow Wound Culture - Preliminary No growth-Final to follow Goal Trough Goal Trough: 15-20 mcg/mL Pharmacy Plan for Drug Dosing Pharmacy Plan for Drug Dosing: VANCOMYCIN LEVEL RECEIVED Current Vancomycin Dose: 750mg Q12H Number of Doses Received: 750mg x2, 1250mg x1 Vancomycin Level: 7.6 Hours Since Last Dose: 12 Renal Function: sCr 0.64 (CrCl 75) Renal Function Trend: stable Lab/Micro: pending Vancomycin Plan/Comments: Increase Vancomycin dosing regimen to 1500mg Q12H Pending Level: Vancomycin trough @ 22:00 10/13/23 Pharmacy Service will continue to monitor and adjust dosing as required. Follow-Up Labs Follow-Up Labs: Trough: Vancomycin (10/13/23 @ 22:00)
[2023-10-12] MEDS: Vancomycin HCl 1,500 MG in 0.9% Normal Saline (500mL Bag) 500 ML 250 MG IV (10:33)
--- NOTE | 2023-10-12 11:36 | PCM.DC.SUM ---
Providers Date of Admission: 10/10/23 Date of Discharge: 10/12/23 Primary Care Physician: Allison Primary Care Phys Consultations 10/10/23 20:29 Consult: Onc/Wound/defense travel administrator Routine Comment: Consult: Orthopedics Routine Consulting Provider: Franco Hernandez Reason for Consult: right olecranon bursitis with cellulitis EMERGENT Consult: No MD Notified: Yes Date Notified: 10/10/23 Time Notified: 20:09 Method of Notification: Text Reason For Visit: CELLULITIS OF THE RUE Diagnosis Discharge Diagnosis (1) Septic olecranon bursitis of right elbow: Status: Acute Code(s): M71.121 - Other infective bursitis, right elbow Medications at Discharge Home Medications acetaminophen 500 mg tablet 1,000 mg (2 x 500 mg) PO Q8 #0 tabs 10/12/23 celecoxib 200 mg capsule 200 mg PO BID #14 caps 10/12/23 doxycycline hyclate 100 mg capsule 100 mg PO BID #1 cap 10/12/23 levofloxacin 750 mg tablet 750 mg PO Q24H #14 tabs 10/12/23 oxycodone 5 mg tablet 5 mg PO Q6H PRN pain 5 days #20 tabs 10/12/23 Hospital Course Operations - (Right septic olecranon bursectomy with irrigation and debridement) Procedures EKG and - (Right elbow x-ray) Summary of Care Provided Minutes Spent on Discharge: 38 Hospital Course: Mrs. Hernández is a 48-year-old white female who presents emergency department at [facility] on 10/10/2023 with right elbow swelling and right upper extremity swelling and erythema. The patient reported that it started last week and had been progressively getting worse. She states intermittently she gets an area that drains and it occurred last week. Physician compounding assistant told her to put a bandage over it and then antibiotics had been started orally with doxycycline. Unfortunately, her swelling and erythema got worse and she is developed a significant boggy swelling at the right elbow bursa. She stated the pain was sharp and that nothing makes it better or worse. She denies any paresthesias changes in pulses or sensation in her hand. She denies any significant weakness in the arm either. She had a total of 3 doses of doxycycline prior to admission. She has had some fevers and chills at home. Also admits to some intermittent headache. She takes no medications at baseline and works in [employer]. The case was discussed with Dr. Hernandez and he agreed to evaluate the patient's for probable I&D. She was started on vancomycin and Levaquin at admission. Blood cultures were ordered by the emergency department prior to the initiation of antibiotics. She is admitted to the medical floor and evaluated by Dr. Hernandez from orthopedic surgery and taken to the OR on 10/11/2023 at which time a right septic olecranon bursectomy with irrigation and debridement was performed. The patient did extremely well with the procedure and felt much better postoperatively and the day after surgery. Her arm erythema improved. Postop her dressing was still in place however she states that she is feeling much better and would like to go home if possible. Cultures are pending so I feel that we should cover her broadly. While she was hospitalized she was on Levaquin and vancomycin. We will continue Levaquin orally for 14 days at discharge and have her continue her doxycycline 100 mg p.o. twice daily to cover MRSA and I will follow cultures and adjust if needed. She was instructed to keep her arm elevated and keep her dressing in place. She has an appointment to see Dr. Hernandez at the end of next week on Sunday. She can do passive range of motion of her wrist and shoulder to maintain mobility here and then will receive further instructions with regard to her elbow at her hospital follow-up. She was instructed to return to the emergency department or call Dr. Hernandez's office if she developed any worsening pain, fever, chills or any other symptoms that were suggestive of worsening infection. Prescriptions for the Levaquin and pain medication were sent to her local pharmacy and she was discharged home in stable condition on 10/12/2023. Discharge diagnoses: Right upper extremity cellulitis Septic olecranon bursitis History of migraines Chronic hearing loss IBS History of tobacco abuse Physical Exam Const alert, oriented x3, no apparent distress, average body habitus and well nourished Constitutional Narrative: Middle-aged, white female, sitting up in bed, appears much better than yesterday and comfortable currently with no signs of toxicity, right arm is elevated per instructions General Appearance: cooperative, comfortable, well kempt and well developed Orientation / Consciousness: awake, oriented to person, oriented to place and oriented to time Exam Limitations: no limitations HEENT normocephalic, head/scalp atraumatic, moist oral mucous membranes and oropharynx normal; Negative for hearing grossly normal bilaterally HEENT Narrative: Hearing loss present but hearing is stable with hearing assistive devices in place Eyes PERRL and EOMs intact bilaterally Eyes Narrative: No scleral icterus Neck no lymphadenopathy and supple Neck Narrative: Trachea midline, no thyroid enlargement Resp normal respiratory effort, normal air movement, no retractions, no use of accessory muscles and clear to auscultation bilaterally Auscultation: Negative for rales, rhonchi or wheezes Cardio regular rate, regular rhythm, S1 normal heart sound, S2 normal heart sound, no murmurs, no rub, no gallops and no clicks GI normal to inspection, nondistended, normoactive bowel sounds, soft to palpation, non-tender and non-distended Extremity Extremity Narrative: Right upper extremity with postoperative dressing in place from hand to just below her right shoulder, outlined area at the shoulder shows retracting erythema, no swelling in her hand and normal mobility of her hand, left upper extremity is within normal limits, no clubbing or cyanosis noted Skin Skin Narrative: as under extremities Neuro oriented x3, moves all extremities and no focal motor deficits Neuro Narrative: Sensory normal in right hand Speech: speech normal Psych affect normal Psych Narrative: Very pleasant, interacts appropriately Appearance: appropriate Weight / BMI Weight Weight: 54.233 kg Body Mass Index (BMI) 26.8 ABG / Lab / Microbiology Data 10/12/23 07:11 10/12/23 07:11 Laboratory: Laboratory Results - last 24 hr 10/12/23 07:11: WBC 7.4, RBC 4.25, Hgb 12.0, Hct 37.3, MCV 87.8, MCH 28.2, MCHC 32.2, RDW Std Deviation 41.3, RDW Coeff of Leobardo 12.9, Plt Count 344, MPV 9.6, Immature Gran % (Auto) 0.800, Neut % (Auto) 68.6, Lymph % (Auto) 17.3 L, Borden % (Auto) 13.1 H, Eos % (Auto) 0.1, Baso % (Auto) 0.1, Absolute Neuts (auto) 5.1, Absolute Lymphs (auto) 1.28, Nucleated RBC % 0, Sodium 135 L, Potassium 3.6, Chloride 106, Carbon Dioxide 23.0, Anion Gap 6, BUN 13, Creatinine 0.64, Estim Creat Clear Calc 75.54, Est GFR (MDRD) Af Amer 125, Est GFR (MDRD) Non-Af 103, BUN/Creatinine Ratio 20.2 H, Glucose 128 H, Calcium 9.1 10/12/23 09:01: Vancomycin Trough 7.6 Microbiology: Microbiology 10/11/23 14:18 Wound - Elbow Wound Culture - Preliminary No growth-Final to follow D/C Instructions Discharge Diet: No restrictions Discharge Activity: Return to Normal Activity Keep extremity elevated above heart level: Operative Extremity and Right Arm Call your doctor if you observe: Fever of 101 or Higher Change Dressing in: do not change dressing Additional Instructions: Range of motion as tolerated shoulder wrist and hand Strict elevation right arm Please Follow Up With: Franco Hernandez DO When: as directed Meaningful Use Info Meaningful Use Meaningful Use Diagnoses (Choose all that apply): None applicable Ischemic Stroke Statin Dosing Therapy Reference: STATIN DOSE THERAPY REFERENCE: * Patients > 75 years receive moderate or high dose statin therapy. * Patients 75 years or YOUNGER should receive HIGH intensity statin dose unless contraindicated. You will be required to document reason for non-treatment if statin daily dose does not meet guidelines. HIGH DOSE STATIN THERAPY DAILY Atorvastatin > than or = to 40 mg Rosuvastatin > than or = to 20 mg Amlodipine + Atorvastatin > than or = to 2.5/40 mg Ezetimibe + Simvastatin 10/80 mg Simvastatin 80mg Discharge Plan Admission Admit Date/Time: 10/10/23 18:30 Primary Reason for Your Visit: R Arm cellulitis and olecranon septic bursitis Attending Provider: Silva Acosta Primary Care Provider: Care Physician,No Primary Consulting Providers: Zoey Forrest; Franco Hernandez Discharge Orders/Prescriptions Prescriptions: New celecoxib 200 mg Capsule 200 mg PO BID Qty: 14 0RF acetaminophen 500 mg Tablet 1,000 mg PO Q8 Qty: 0 0RF Rx Instructions: Take until no longer needed oxycodone 5 mg Tablet 5 mg PO Q6H PRN (Reason: pain) 5 Days Qty: 20 0RF doxycycline hyclate 100 mg capsule 100 mg PO BID Qty: 1 0RF levofloxacin 750 mg tablet 750 mg PO Q24H Qty: 14 0RF Referrals / Follow Up: Rox Ross DO [Med Staff - Cyber Engineer] - See Referral Note (As needed) Franco Hernandez DO [Med Staff - Active Staff] - Within 1 Week Care Physician,No Primary [Primary Care Provider] - Disposition Disposition (needs filled in before D/C Order can be placed): Home, Self Care Charges/Coding Visit Charges Inpatient E&M: 87331 Disch Hosp >30min
--- NOTE | 2023-10-12 11:52 | CASEMGMT ---
CARLOS CM into pt room, pt states she has been in contact with [facility] today and the dressing will stay on until she sees . 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 Pt denies any homegoing needs.
[2023-10-12 12:15] VITALS: BP 152/75; PULSE 64; RESP 18; TEMP 36.7; O2SAT 98
== END 2023-10-12 13:30 | disposition home or self-care (01) | DRG 558 ==
LOC: ED 18:31 → MS3 19:30
PROVIDERS: Internal Medicine; Student in an Organized Health Care Education/Training Program; Admitting Provider Student in an Organized Health Care Education/Training Program; Emergency Provider Emergency Medicine; Referring Provider Student in an Organized Health Care Education/Training Program; Visit Provider Internal Medicine
PROC: 0HDDXZZ Extraction of Right Lower Arm Skin, External Approach (ICD-10-PCS; CPT 24105; principal; 2023-10-11 14:15)
DX: M71.121 Other infective bursitis, right elbow (principal); L03.113 Cellulitis of right upper limb; H91.90 Unspecified hearing loss, unspecified ear; K58.9 Irritable bowel syndrome, unspecified; Z87.891 Personal history of nicotine dependence
CPT/HCPCS: 36415; 73080; 80048; 80202; 81001; 83605; 85025; 85610; 85730; 87040; 87070; 87075; 87205; 93005; 94668; 99283; J7030; J7040; J7050; J7120; J2405

== ENCOUNTER → 2025-02-10 | Outpatient (CLI) | payer OTHER, SELFPAY | END | disposition home or self-care (01) | PROVIDERS: Referring Provider Student in an Organized Health Care Education/Training Program; Visit Provider Student in an Organized Health Care Education/Training Program | DX: M70.22 Olecranon bursitis, left elbow (principal) | CPT/HCPCS: 87070; 87205 ==